=== PATIENT | female | born 1955 | race Caucasian/White ===

== ENCOUNTER → 2016-05-04 | Outpatient (CLI) | payer BC ==
[~2016-05-04] MED LIST: CALC600T21 PO; FISH1000 PO; FLAX1200 PO; GLUC1CAP9 PO; LEXA1TAB2 PO; NABU50TA PO; RANI300C PO; SUPECAP24 PO; cranberry OR; drisdol OR; tylenol pm OR
--- NOTE | 2016-05-09 07:29 | RADONC ---
RADIATION ONCOLOGY FOLLOWUP NOTE DATE: 05/04/2016 CHART NUMBER: [id number]. DIAGNOSIS: Right breast cancer. STAGE: IIB, [id number]. ECOG PERFORMANCE STATUS: 0 FOLLOWUP NOTE: Ms. Meyers is a very pleasant 60-year-old white female with the diagnosis of a stage IIB, [id number] moderately differentiated infiltrating ductal carcinoma of the right breast who is presenting to us today for routine followup visit 1 year and 1 month post completion of external beam radiation therapy. The patient presents today reporting that he is doing quite well with no complaints at this time related to her radiation therapy disease. She has no breast or bone pain. REVIEW OF SYSTEMS: The patient's review of systems is noncontributory. She denies nausea, vomiting, fevers, chills, night sweats, diplopia, headaches, anxiety or depression, anorexia, weight loss, visual disturbances, chest pain, urinary or bowel difficulties, bone pain, or neurological problems. PHYSICAL EXAMINATION: The patient is a well-developed, well-nourished white female in no acute distress. HEENT exam is normocephalic, atraumatic. Extraocular movements are intact. There is no palpable cervical, supraclavicular, infraclavicular, axillary, or inguinal lymphadenopathy present. Lungs are clear to auscultation and percussion. Heart has a regular rate and rhythm. Abdomen is benign with no hepatosplenomegaly, masses, or tenderness. Breast examination reveals no masses or discharge bilaterally. Skeletal examination reveals no tenderness to pressure or percussion of the bony skeleton. Extremities reveal no clubbing, cyanosis, or edema. Neurologic exam is grossly intact, as is the remainder of the physical examination. ASSESSMENT: The patient is clinically RAY at this time and will be seen by us again in 6 months further followup. She will also continue to be followed by her other physicians as well. cc: MD Christopher Garcia MD *KORINA Zambrano
== END ==
LOC: M ONCR 09:03
PROVIDERS: ATTEND Radiology Radiation Oncology
DX: C50.411 Malignant neoplasm of upper-outer quadrant of right female breast (principal)

== ENCOUNTER → 2016-07-04 | Outpatient (CLI) | payer BC | LOC: M LAB 16:07 | PROVIDERS: ATTEND Physician Assistant | DX: E55.9 Vitamin D deficiency, unspecified (principal); E66.9 Obesity, unspecified ==

== ENCOUNTER → 2016-09-28 | Outpatient (CLI) | payer BC ==
[~2016-09-28] MED LIST changes: -CALC600T21 PO; +CALC600T60 PO; +NABU500T PO; -NABU50TA PO
--- NOTE | 2016-09-28 17:11 | REP ---
RIGHT HAND, FOUR VIEWS: HISTORY: Pain. There is no acute fracture or dislocation. There is narrowing of the metacarpal phalangeal , intermediate and distal interphalangeal joint spaces. Osteophytes are present at the interphalangeal joint space of the 3rd digit and distal interphalangeal joint spaces of the 1st through 5th digits. IMPRESSION: Degenerative change as described above. Signed by Matti Rudolph MD 09/28/2016 05:14 P
--- NOTE | 2016-09-28 17:12 | REP ---
AP, LATERAL RIGHT WRIST, TWO VIEWS: HISTORY: Pain. There is no acute fracture or dislocation. The joint spaces are normal in appearance. Calcifications are present in the soft tissue dorsal to the carpal bones. This represents ligamentous or tendon calcification. IMPRESSION: Degenerative change as described above. Signed by Matti Rudolph MD 09/28/2016 05:13 P
== END ==
LOC: M RAD 15:38
PROVIDERS: ATTEND Internal Medicine Medical Oncology
DX: C50.919 Malignant neoplasm of unspecified site of unspecified female breast (principal); M19.031 Primary osteoarthritis, right wrist; M19.041 Primary osteoarthritis, right hand

== ENCOUNTER → 2016-11-23 | Outpatient (CLI) | payer BC ==
--- NOTE | 2016-11-23 11:40 | RADONC ---
RADIATION ONCOLOGY FOLLOWUP NOTE: DATE: 11/23/2016 CHART NUMBER: [id number]. DIAGNOSIS: Right breast cancer. STAGE: IIB, [id number]. ECOG PERFORMANCE STATUS: Zero. FOLLOWUP NOTE: Ms. Meyers is a very pleasant, 61-year-old white female with the diagnosis of a stage IIB, [id number] moderately differentiated infiltrating ductal carcinoma of the right breast who is presenting to us today for routine followup visit 1 year and 8 months post completion of external beam radiation therapy. The patient presents today reporting that she is doing quite well with no complaints at this time related to her radiation therapy disease. She has no breast or bone pain. REVIEW OF SYSTEMS: The patient's review of systems is noncontributory. Denies nausea, vomiting, fevers, chills, night sweats, diplopia, headaches, anxiety or depression, anorexia, weight loss, visual disturbances, chest pain, urinary or bowel difficulties, bone pain, or neurological problems. PHYSICAL EXAMINATION: The patient is a well-developed, well-nourished, white female, in no acute distress. HEENT exam is normocephalic, atraumatic. Extraocular movements are intact. There is no palpable cervical, supraclavicular, infraclavicular, axillary, or inguinal lymphadenopathy present. Lungs are clear to auscultation and percussion. Heart has a regular rate and rhythm. Abdomen is benign with no hepatosplenomegaly, masses, or tenderness. Breast examination reveals no masses or discharge bilaterally. Skeletal examination reveals no tenderness to pressure or percussion of the bony skeleton. Extremities reveal no clubbing, cyanosis, or edema. Neurologic exam is grossly intact, as is the remainder of the physical examination. ASSESSMENT: The patient is clinically RAY at this time and will be seen by us again in 6 months for further followup. She will also continue to be followed by her other physicians as well. cc: Sabine Burgess MD, FACP KORINA Zambrano MD
== END ==
LOC: M ONCR 09:18
PROVIDERS: ATTEND Radiology Radiation Oncology
DX: C50.411 Malignant neoplasm of upper-outer quadrant of right female breast (principal)

== ENCOUNTER → 2016-12-13 | Outpatient (CLI) | payer BC ==
--- NOTE | 2016-12-13 13:23 | REP ---
WHOLE BODY BONE SCAN: Following the intravenous administration of 21.7 mCi of technetium-99m MDP, patient's whole body is imaged in the anterior and posterior projections. Additional oblique images are performed of the thoracic and pelvic regions as well as lateral views of the calvarium. Comparison made with prior study of 12/04/2014. There is no compelling scintigraphic evidence of osseous metastases. Once again, there are arthritic changes seen in the hands and wrists, lumbar spine, right knee, and bilateral feet. There is also arthritic uptake in the left sternoclavicular joint. Renal and bladder activity are seen. IMPRESSION: Scattered arthritic uptake with no compelling scintigraphic evidence of osseous metastases. Signed by Sheldon Xiong MD 12/13/2016 04:50 P
== END ==
LOC: M RAD 09:57
PROVIDERS: ATTEND Internal Medicine Medical Oncology
DX: C50.919 Malignant neoplasm of unspecified site of unspecified female breast (principal); M25.551 Pain in right hip; M15.0 Primary generalized (osteo)arthritis
CPT/HCPCS: 78306; A9503

== ENCOUNTER → 2017-02-10 | Outpatient (CLI) | payer BC ==
[2017-02-10 08:44] LABS: ALBUMIN 3.7 GM/DL (3.2-5.2); ALBUMIN/GLOBULIN RATIO 1.16 (1.00-1.93); ALKALINE PHOSPHATASE 74 U/L (45-117); ALT/SGPT 30 U/L (12-78); ANION GAP 11 MEQ/L (8-16); AST/SGOT 22 U/L (7-37); BILIRUBIN,TOTAL 0.7 MG/DL (0.2-1.0); BLOOD UREA NITROGEN 19 MG/DL (7-18); CALCIUM LEVEL 9.4 MG/DL (8.8-10.2); CARBON DIOXIDE LEVEL 25 MEQ/L (21-32); CHLORIDE LEVEL 107 MEQ/L (98-107); CHOLESTEROL LEVEL 164 MG/DL (<200); CREATININE FOR GFR 0.68 MG/DL (0.55-1.02); GLOMERULAR FILTRATION RATE > 60.0 (>45); GLUCOSE, FASTING 91 MG/DL (80-110); POTASSIUM SERUM 4.3 MEQ/L (3.5-5.1); SODIUM LEVEL 143 MEQ/L (136-145); TOTAL PROTEIN 6.9 GM/DL (6.4-8.2); TRIGLYCERIDES LEVEL 132 MG/DL (<150)
== END ==
LOC: M LAB 07:12
PROVIDERS: ATTEND Physician Assistant
DX: E78.2 Mixed hyperlipidemia (principal); K21.9 Gastro-esophageal reflux disease without esophagitis; E55.9 Vitamin D deficiency, unspecified

== ENCOUNTER → 2017-06-20 | Outpatient (CLI) | payer BC | LOC: M WHC 07:59 | DX: Z79.811 Long term (current) use of aromatase inhibitors (principal); C50.919 Malignant neoplasm of unspecified site of unspecified female breast | CPT/HCPCS: 77080 ==

== ENCOUNTER → 2018-01-04 | Outpatient (CLI) | payer BC ==
[~2018-01-04] MED LIST changes: -CALC600T60 PO; -FISH1000 PO; -FLAX1200 PO; -GLUC1CAP9 PO; -LEXA1TAB2 PO; -NABU500T PO; +PROHANCE 279.3MG/ML 15ML VIAL (A9576) As Ordered; +PROHANCE 279.3MG/ML 5ML VIAL (A9576) As Ordered; -RANI300C PO; -SUPECAP24 PO; -cranberry OR; -drisdol OR; -tylenol pm OR
== END ==
LOC: M RAD 09:03
DX: C50.919 Malignant neoplasm of unspecified site of unspecified female breast (principal); R51 Headache; I67.82 Cerebral ischemia
CPT/HCPCS: A9576

== ENCOUNTER → 2018-01-05 | Outpatient (CLI) | payer BC | LOC: M RAD 15:41 | DX: C50.919 Malignant neoplasm of unspecified site of unspecified female breast (principal); Z98.890 Other specified postprocedural states | CPT/HCPCS: A9576 ==

== ENCOUNTER → 2018-09-26 | Outpatient (CLI) | payer BC ==
[~2018-09-26] MED LIST changes: +ALEN70TA74 PO; +B CO PO; +CALC600T60 PO; +CIDA500T2 PO; +EXEM25TA PO; +FISH1000 PO; +FLAX1200 PO; +FLAX1CAP5 PO; +GLUC1CAP9 PO; +LEXA1TAB2 PO; +MELO15TA28 PO; +NABU-126 PO; -PROHANCE 279.3MG/ML 15ML VIAL (A9576) As Ordered; -PROHANCE 279.3MG/ML 5ML VIAL (A9576) As Ordered; +RANI300C PO; +SUPECAP24 PO; +cranberry OR; +drisdol OR; +tylenol pm OR
[2018-09-26 14:43] LABS: ALBUMIN 3.7 GM/DL (3.2-5.2); ALT/SGPT 30 U/L (12-78); BILIRUBIN,TOTAL 0.4 MG/DL (0.2-1.0); BLOOD UREA NITROGEN 12 MG/DL (7-18); CALCIUM LEVEL 8.8 MG/DL (8.8-10.2); CARBON DIOXIDE LEVEL 26 MEQ/L (21-32); CHLORIDE LEVEL 106 MEQ/L (98-107); CREATININE FOR GFR 0.74 MG/DL (0.55-1.30); GLOMERULAR FILTRATION RATE > 60.0 (>45); GLUCOSE, FASTING 83 MG/DL (70-100); POTASSIUM SERUM 4.4 MEQ/L (3.5-5.1); SODIUM LEVEL 140 MEQ/L (136-145); TOTAL PROTEIN 7.3 GM/DL (6.4-8.2)
[2018-09-26 14:50] LABS: TOTAL 25(OH) VITAMIN D 62.5 NG/ML (30.0-100.0)
== END ==
LOC: M LAB 13:55
PROVIDERS: ATTEND Physician Assistant
DX: M15.9 Polyosteoarthritis, unspecified (principal); K21.9 Gastro-esophageal reflux disease without esophagitis; C50.919 Malignant neoplasm of unspecified site of unspecified female breast; E78.2 Mixed hyperlipidemia; E55.9 Vitamin D deficiency, unspecified

== ENCOUNTER → 2019-04-18 | Outpatient (CLI) | payer BC ==
[~2019-04-18] MED LIST changes: +PROT1TAB2 PO; +PROTPAK PO
--- NOTE | 2019-04-19 02:56 | REP ---
Clinical: Right-sided chest pain. Technique: PA and lateral. Comparison: None. Findings: Mediastinum and cardiac silhouette normal. Lung reed demonstrate chronic-appearing interstitial changes. No obvious focal consolidation, effusion, or pneumothorax. Skeletal structures demonstrate degenerative changes and chronic scoliosis. Small surgical clips noted along the lateral aspect of the right hemithorax. Impression: Chronic-appearing changes. If the patient remains symptomatic consider CT for further investigation. Electronically Signed by Uriel Walls MD 04/19/2019 02:48 A
--- NOTE | 2019-04-19 03:05 | REP ---
Clinical: Trauma. Technique: Four views of the right hemithorax. Findings: Multiple views of the right hemithorax demonstrates no obvious acute rib fracture or pathology. Evidence of prior axillary node dissection. Impression: Normal right rib series Electronically Signed by Uriel Walls MD 04/19/2019 02:57 A
== END ==
LOC: M ADAMS 10:45
PROVIDERS: ATTEND Physician Assistant
DX: R07.81 Pleurodynia (principal)

== ENCOUNTER → 2019-04-24 | Outpatient (CLI) | payer BC ==
--- NOTE | 2019-04-25 04:27 | REP ---
Clinical: Right upper quadrant pain. Technique: Real time guajardo scale ultrasound examination using curved array transducer. Comparison: CT dated 03/06/2015 Findings: The liver is relatively normal in contour, size, echogenicity without focal hepatic lesion identified and the previously noted hepatic cyst is not visualized on current examination. The pancreas is unremarkable. The gallbladder is normal and without gallstones, wall thickening, or pericholecystic fluid. No biliary ductal dilatation is appreciated and the common bile duct measures 4.3 mm diameter. The right kidney is limited in evaluation due to technical factors and appears to measure approximately 9.4 x 4.8 x 4.1 cm with 2.9 cm and 1.8 cm mid pole cysts. No hydronephrosis. Small amount of perihepatic fluid is identified and possible small right pleural effusion cannot be excluded. Impression: 1. Small amount of perihepatic fluid and possible right pleural effusion. 2. Liver is relatively normal in appearance and the previously identified hepatic cyst is not visualized on current exam. 3. Somewhat limited evaluation of the right kidney due to technical factors suggesting age-related atrophy and two mid pole cysts. These findings appear relatively similar to CT dated 2014. Electronically Signed by Uriel Walls MD 04/25/2019 04:18 A
== END ==
LOC: M RAD 07:31
PROVIDERS: ATTEND Physician Assistant
DX: R10.11 Right upper quadrant pain (principal)

== ENCOUNTER → 2019-05-10 | Outpatient (REF) | payer BC ==
[2019-05-10 09:35] LABS: BASO % 0.2 % (0.0-1.0); EOS # 0.1 10^3/uL (0.0-0.5); EOS % 0.7 % (0.0-3.0); HEMATOCRIT 41.8 % (36.0-47.0); HEMOGLOBIN 13.8 g/dl (12.0-15.5); LYMPH # 1.1 10^3/uL (1.5-5.0); MEAN CORPUSCULAR HEMOGLOBIN 31.2 pg (27.0-33.0); MEAN CORPUSCULAR VOLUME 94.6 fl (80.0-96.0); MONO # 0.7 10^3/uL (0.0-0.8); MONO % 7.5 % (0.0-5.0); NEUTROPHILS # 7.2 10^3/uL (1.5-8.5); NEUTROPHILS % 79.3 % (36.0-66.0); PLATELET COUNT, AUTOMATED 426 10^3/uL (150-450); RED BLOOD COUNT 4.42 10^6/uL (4.00-5.40); WHITE BLOOD COUNT 9.1 10^3/uL (4.0-10.0)
[2019-05-10 09:59] LABS: ALBUMIN 2.7 GM/DL (3.2-5.2); ALT/SGPT 21 U/L (12-78); BILIRUBIN,TOTAL 0.4 MG/DL (0.2-1.0); BLOOD UREA NITROGEN 11 MG/DL (7-18); CALCIUM LEVEL 8.8 MG/DL (8.8-10.2); CARBON DIOXIDE LEVEL 28 MEQ/L (21-32); CHLORIDE LEVEL 102 MEQ/L (98-107); CREATININE FOR GFR 0.72 MG/DL (0.55-1.30); GLOMERULAR FILTRATION RATE > 60.0 (>45); GLUCOSE, FASTING 102 MG/DL (70-100); SODIUM LEVEL 137 MEQ/L (136-145); TOTAL PROTEIN 6.8 GM/DL (6.4-8.2)
[2019-05-10 10:49] LABS: CA15-3 ANTIGEN 3.8 U/ML (<32.4)
== END ==
LOC: M LAB REF 09:10
PROVIDERS: ATTEND Obstetrics & Gynecology
DX: R19.00 Intra-abdominal and pelvic swelling, mass and lump, unspecified site (principal); Z80.3 Family history of malignant neoplasm of breast; N81.10 Cystocele, unspecified; N81.6 Rectocele; C50.911 Malignant neoplasm of unspecified site of right female breast; R10.2 Pelvic and perineal pain

== ENCOUNTER 2019-05-16 09:45 | Emergency (ER) | payer BC ==
[~2019-05-16] VITALS: Ht 165.1 cm; Wt 95.9 kg
--- NOTE | 2019-05-16 10:56 | REP ---
Clinical: Abdominal pain. Technique: PA and lateral. Comparison: 04/18/2019. Findings: There are small pleural effusions with trace basilar atelectasis suggested. Mediastinum and cardiac silhouette are normal. Right axillary node dissection noted. Impression: Possible small pleural effusions and trace atelectasis. Electronically Signed by Uriel Walls MD 05/16/2019 10:47 A
[2019-05-16 11:12] LABS: BASO % 0.2 % (0.0-1.0); EOS % 0.1 % (0.0-3.0); HEMATOCRIT 41.6 % (36.0-47.0); LYMPH # 1.2 10^3/uL (1.5-5.0); LYMPH % 8.8 % (24.0-44.0); MEAN CORPUSCULAR HGB CONC 33.7 g/dl (32.0-36.5); MONO % 7.8 % (0.0-5.0); NEUTROPHILS % 82.6 % (36.0-66.0); PLATELET COUNT, AUTOMATED 486 10^3/uL (150-450); RED BLOOD COUNT 4.52 10^6/uL (4.00-5.40); WHITE BLOOD COUNT 13.3 10^3/uL (4.0-10.0)
[2019-05-16] MEDS ORDERED: LEXA1TAB2 PO (11:34)
[2019-05-16] MEDS ORDERED: MYRB25TA PO (11:38)
[2019-05-16] MEDS ORDERED: ISOVUE-370 76% 100ML VIAL (Q9967) As Ordered ONE (12:26)
[2019-05-16] MEDS ORDERED: LORazepam 2 MG/ML VIAL (J2060) IV STA (12:27)
[2019-05-16 12:47] LABS: INR 1.2
[2019-05-16 12:48] LABS: PARTIAL THROMBOPLASTIN TIME 29.9 SECONDS (25.0-38.4)
[2019-05-16 13:17] LABS: ALBUMIN 2.3 GM/DL (3.2-5.2); ALT/SGPT 18 U/L (12-78); AMYLASE 21 U/L (25-115); BILIRUBIN,DIRECT 0.1 MG/DL (0.0-0.2); BILIRUBIN,TOTAL 0.3 MG/DL (0.2-1.0); BLOOD UREA NITROGEN 15 MG/DL (7-18); CALCIUM LEVEL 8.8 MG/DL (8.8-10.2); CARBON DIOXIDE LEVEL 26 MEQ/L (21-32); CHLORIDE LEVEL 99 MEQ/L (98-107); CK-MB VALUE MASS 1.5 NG/ML (<3.6); CPK CREATINE PHOSPHOKINASE 104 U/L (26-192); CREATININE FOR GFR 0.88 MG/DL (0.55-1.30); GLOMERULAR FILTRATION RATE > 60.0 (>45); GLUCOSE, FASTING 88 MG/DL (70-100); LIPASE 197 U/L (73-393); MB/CK RELATIVE INDEX 1.44 (< OR =4); NT-PRO BNP 523 PG/ML (<125); POTASSIUM SERUM 3.9 MEQ/L (3.5-5.1); SODIUM LEVEL 133 MEQ/L (136-145); TOTAL PROTEIN 6.5 GM/DL (6.4-8.2); TROPONIN I < 0.02 NG/ML (< 0.10)
--- NOTE | 2019-05-16 13:38 | REP ---
CT PULMONARY ANGIOGRAM: With IV contrast. HISTORY: Shortness of breath, diffuse abdominal pain. Uterine mass. Elevated tumor markers. Prior history of breast carcinoma. COMPARISON STUDIES: Comparison sonography April 24, 2018. Comparison CT study of the abdomen March 06, 2015. CT CONTRAST DOSE: 100 mL of intravenous Isovue 378. CT TECHNIQUE: Helical scanning is acquired and overlapping 1.5 mm and contiguous 3 mm axial images are reformatted. In addition, maximum intensity projection and multiplanar re-formation images are generated in sagittal and coronal imaging projections. CT PULMONARY ANGIOGRAPHIC FINDINGS: There is good opacification in the pulmonary arterial tree. There is no CT evidence of pulmonary embolism. Thoracic aorta enhances homogeneously. There is no evidence of aneurysm or dissection. There are however bilateral pleural effusions and there is bilateral internal mammary lymphadenopathy with right superior mediastinal lymphadenopathy. There is heterogeneous nodular pleural thickening on the superior surface of the right diaphragm and to a lesser extent left diaphragm in an infiltrative pattern. There is adenopathy in the epicardial fat. There is ascites in the upper abdomen. The right pleural effusion is a little larger than left. There are compressive atelectatic changes in the lower lobes of the lungs bilaterally. No pulmonary mass lesion is seen. There is some discoid atelectasis in the right and left upper lobe. Bone window settings show no bony destructive lesion. There is no evidence of axillary or supraclavicular adenopathy. There are surgical clips in the right axilla. IMPRESSION: Bilateral pleural effusions, right larger than left with nodular pleural thickening changes at the bases bilaterally suggesting malignant pleural disease. There is internal mammary and epicardial and mediastinal adenopathy. There is mild pericardial thickening. Upper abdominal ascites. No CT evidence of pulmonary embolus. Electronically Signed by Jesse Villa MD 05/16/2019 05:04 P
--- NOTE | 2019-05-16 13:54 | REP ---
CT of the abdomen and pelvis with IV contrast, without bowel contrast: Comparison is 2014. Additionally, the the patient had a chest CT this same date. There are bilateral pleural effusions in the visualized lower lung reed. There are mesenteric and omental implants in the midline of the upper abdomen anteriorly resulting in omental thickening. There is abdominal ascites throughout the abdomen and pelvis. There is a 1.4 cm hepatic cyst in the right lobe, unchanged from the prior study. The hepatic parenchyma is otherwise homogeneous. The gallbladder, pancreas and spleen are normal size unremarkable. The adrenals are unremarkable. The left kidney is unremarkable. There are left renal cortical cysts, unchanged. However, there is hydronephrosis as an interval change. There is an aortocaval mass measuring up to 5.9 cm, likely resulting in right ureteral compression and hydronephrosis. Pelvis: There is a large mass in the midline of the pelvis, likely a uterine mass. The bladder is unremarkable. There are no lytic, blastic or destructive skeletal changes. Impression: There is a large pelvic mass, likely a uterine mass. There is a large volume of ascites in the abdomen and pelvis. There are mesenteric and omental implants in the upper abdomen anteriorly . There is a an aortocaval retroperitoneal mass, likely adenopathy. There is right renal hydronephrosis, likely from ureteral compression from the aortocaval mass. There is an hepatic cyst. The hepatic parenchyma is otherwise unremarkable. There are right renal cysts. There are bilateral pleural effusions. There are no lytic, blastic or destructive skeletal changes. Electronically Signed by Sheldon Macario MD 05/16/2019 01:45 P
[2019-05-16] MEDS ORDERED: ONDANSETRON 4MG/2ML VIAL (J2405) IV ONE (18:45)
--- NOTE | 2019-05-16 18:45 | ECGEPIP ---
[facility] - ED Test Date: 2019-05-16 Pat Name: LU YOUSSEF Department: Room: - Gender: Female Etcher Enameling: soraida : 1955 Requested By: KECIA Rudolph PA-C Order Number: [id number] Reading MD: Regino Khalil Measurements Intervals Clarkia Rate: 94 P: 60 MD: 140 QRS: 10 QRSD: 95 T: 46 QT: 367 QTc: 460 Interpretive Statements SINUS RHYTHM LOW QRS VOLTAGE IN PRECORDIAL LEADS INCOMPLETE RIGHT BUNDLE BRANCH BLOCK NONSPECIFIC T-WAVE ABNORMALITY NO PRIORS FOR COMPARISON Electronically Signed on 05-16-2019 18:44:54 EST by Regino Khalil
[2019-05-16] MEDS ORDERED: LORazepam 2 MG/ML VIAL (J2060) IV ONE (20:45)
[2019-05-16 21:15] VITALS: BP 144/83
[2019-05-16] MEDS ORDERED: LORazepam 2 MG/ML VIAL (J2060) As Ordered ONE (21:16)
== END 2019-05-16 21:28 | disposition short-term general hospital (02) ==
LOC: M ED 09:45
DX: I45.19 Other right bundle-branch block (principal); N13.30 Unspecified hydronephrosis; D39.0 Neoplasm of uncertain behavior of uterus; R18.8 Other ascites; J90 Pleural effusion, not elsewhere classified; R10.84 Generalized abdominal pain; K76.89 Other specified diseases of liver; N28.1 Cyst of kidney, acquired; K68.9 Other disorders of retroperitoneum; R93.5 Abnormal findings on diagnostic imaging of other abdominal regions, including retroperitoneum; R06.02 Shortness of breath; Z87.442 Personal history of urinary calculi; Z87.448 Personal history of other diseases of urinary system; Z85.79 Personal history of other malignant neoplasms of lymphoid, hematopoietic and related tissues; E55.9 Vitamin D deficiency, unspecified; E66.9 Obesity, unspecified; Z79.899 Other long term (current) drug therapy
CPT/HCPCS: 36415; 71046; 71275; 74177; 80047; 80048; 80076; 82150; 82550; 82553; 83605; 83690; 83880; 84484; 85025; 85610; 85730; 93005; 96374; 96375; 99284; J2060; J2405; Q9967

== ENCOUNTER → 2019-05-31 | Outpatient (REF) | payer BC ==
[~2019-05-31] MED LIST changes: +MYRB25TA PO
[2019-05-31 14:09] LABS: HEMATOCRIT 34.5 % (36.0-47.0); HEMOGLOBIN 11.2 g/dl (12.0-15.5); MEAN CORPUSCULAR HEMOGLOBIN 30.9 pg (27.0-33.0); MEAN CORPUSCULAR HGB CONC 32.5 g/dl (32.0-36.5); MEAN CORPUSCULAR VOLUME 95.3 fl (80.0-96.0); PLATELET COUNT, AUTOMATED 217 10^3/uL (150-450); RED BLOOD COUNT 3.62 10^6/uL (4.00-5.40); WHITE BLOOD COUNT 7.8 10^3/uL (4.0-10.0)
[2019-05-31 14:27] LABS: ALBUMIN 1.8 GM/DL (3.2-5.2); ALT/SGPT 38 U/L (12-78); BILIRUBIN,TOTAL 0.2 MG/DL (0.2-1.0); BLOOD UREA NITROGEN 17 MG/DL (7-18); CALCIUM LEVEL 7.3 MG/DL (8.8-10.2); CARBON DIOXIDE LEVEL 31 MEQ/L (21-32); CHLORIDE LEVEL 102 MEQ/L (98-107); CREATININE FOR GFR 0.48 MG/DL (0.55-1.30); GLOMERULAR FILTRATION RATE > 60.0 (>45); GLUCOSE, FASTING 101 MG/DL (70-100); POTASSIUM SERUM 3.5 MEQ/L (3.5-5.1); SODIUM LEVEL 138 MEQ/L (136-145); TOTAL PROTEIN 4.8 GM/DL (6.4-8.2)
== END ==
LOC: M SHH 12:58
PROVIDERS: ATTEND Internal Medicine Medical Oncology
DX: C50.419 Malignant neoplasm of upper-outer quadrant of unspecified female breast (principal)

== ENCOUNTER → 2019-08-13 | Outpatient (REF) | payer BC ==
[2019-08-13 18:04] LABS: APPEARANCE, URINE CLOUDY (CLEAR); BACTERIA, URINE AUTO 1+ (NEGATIVE); BILIRUBIN, URINE AUTO NEGATIVE (NEGATIVE); BLOOD, URINE BLOOD NEGATIVE (NEGATIVE); COLOR, URINE YELLOW (YELLOW); GLUCOSE, URINE (UA) AUTO NEGATIVE (NEGATIVE); KETONE, URINE AUTO NEGATIVE (NEGATIVE); LEUKOCYTE ESTERASE, URINE AUTO 3+ (NEGATIVE); MUCUS, URINE SMALL (NEGATIVE); NITRITE, URINE AUTO NEGATIVE (NEGATIVE); PROTEIN, URINE AUTO 2+ mg/dL (NEGATIVE); RBC, URINE AUTO 5 /HPF (0-3); SPECIFIC GRAVITY URINE AUTO 1.005 (1.002-1.035); SQUAMOUS EPITHELIAL CELL UR AU 0 /HPF (0-6); UROBILINOGEN, URINE AUTO 0.2 mg/dL (0.0-2.0); WBC, URINE AUTO 117 /HPF (0-3)
== END ==
LOC: M SFHCLACO 16:35
PROVIDERS: ATTEND Physician Assistant
DX: R30.0 Dysuria (principal)

== ENCOUNTER → 2019-09-20 | Outpatient (REF) | payer BC ==
[2019-09-20 16:05] LABS: APPEARANCE, URINE CLOUDY (CLEAR); BACTERIA, URINE AUTO 1+ (NEGATIVE); BILIRUBIN, URINE AUTO NEGATIVE (NEGATIVE); BLOOD, URINE BLOOD 1+ (NEGATIVE); COLOR, URINE YELLOW (YELLOW); GLUCOSE, URINE (UA) AUTO NEGATIVE (NEGATIVE); KETONE, URINE AUTO NEGATIVE (NEGATIVE); LEUKOCYTE ESTERASE, URINE AUTO 3+ (NEGATIVE); MUCUS, URINE SMALL (NEGATIVE); NITRITE, URINE AUTO NEGATIVE (NEGATIVE); PROTEIN, URINE AUTO 2+ mg/dL (NEGATIVE); RBC, URINE AUTO 7 /HPF (0-3); SPECIFIC GRAVITY URINE AUTO 1.012 (1.002-1.035); SQUAMOUS EPITHELIAL CELL UR AU 1 /HPF (0-6); UROBILINOGEN, URINE AUTO 0.2 mg/dL (0.0-2.0); WBC, URINE AUTO TNTC /HPF (0-3)
== END ==
LOC: M SFHCLACO 13:42
PROVIDERS: ATTEND Physician Assistant
DX: R30.0 Dysuria (principal); N30.00 Acute cystitis without hematuria

== ENCOUNTER → 2019-11-12 | Outpatient (REF) | payer BC ==
[~2019-11-12] MED LIST changes: -NABU-126 PO; +NABU-51 PO
[2019-12-30 22:23] LABS: APPEARANCE, URINE CLEAR (CLEAR); BACTERIA, URINE AUTO 2+ (NEGATIVE); BILIRUBIN, URINE AUTO NEGATIVE (NEGATIVE); BLOOD, URINE BLOOD 1+ (NEGATIVE); COLOR, URINE STRAW (YELLOW); GLUCOSE, URINE (UA) AUTO NEGATIVE (NEGATIVE); KETONE, URINE AUTO NEGATIVE (NEGATIVE); LEUKOCYTE ESTERASE, URINE AUTO 3+ (NEGATIVE); NITRITE, URINE AUTO NEGATIVE (NEGATIVE); PROTEIN, URINE AUTO NEGATIVE (NEGATIVE); RBC, URINE AUTO 4 /HPF (0-3); SPECIFIC GRAVITY URINE AUTO 1.005 (1.002-1.035); SQUAMOUS EPITHELIAL CELL UR AU 0 /HPF (0-6); UROBILINOGEN, URINE AUTO 0.2 mg/dL (0.0-2.0); WBC, URINE AUTO 31 /HPF (0-3)
== END ==
LOC: M SFHCADAM 09:52
PROVIDERS: ATTEND Physician Assistant Medical
DX: R30.0 Dysuria (principal)

== ENCOUNTER → 2019-12-01 | Outpatient (REF) | payer BC | LOC: M WUC 17:00 | PROVIDERS: ATTEND Physician Assistant | DX: N39.0 Urinary tract infection, site not specified (principal) ==

== ENCOUNTER → 2020-02-26 | Outpatient (CLI) | payer BC ==
--- NOTE | 2020-02-26 15:37 | REP ---
INDICATION: SWELLING IN BOTH LEGS COMPARISON: None. TECHNIQUE: Xiong scale and color Doppler evaluation of the bilateral lower extremities using linear high frequency transducer. FINDINGS: Ultrasound examination of the right and left lower extremity deep venous structures from the common femoral vein to the popliteal vein demonstrates normal compressibility flow and wave patterns in response to respiration and augmentation. There is no evidence for deep venous thrombosis. IMPRESSION: No evidence for deep venous thrombosis. <Electronically signed by Uriel Walls > 02/26/20 1532
== END ==
LOC: M RAD 14:48
PROVIDERS: ATTEND Family Medicine
DX: L53.9 Erythematous condition, unspecified (principal)

== ENCOUNTER → 2020-10-08 | Outpatient (REF) | payer MEDICARE, BC ==
[~2020-10-08] MED LIST changes: -ALEN70TA74 PO; +ALEN70TA82 PO; -NABU-51 PO; +NABU-71 PO
[2020-10-08 12:39] LABS: APPEARANCE, URINE CLOUDY (CLEAR); BACTERIA, URINE AUTO 1+ (NEGATIVE); BILIRUBIN, URINE AUTO NEGATIVE (NEGATIVE); BLOOD, URINE BLOOD 2+ (NEGATIVE); COLOR, URINE YELLOW (YELLOW); GLUCOSE, URINE (UA) AUTO NEGATIVE (NEGATIVE); KETONE, URINE AUTO NEGATIVE (NEGATIVE); LEUKOCYTE ESTERASE, URINE AUTO 3+ (NEGATIVE); MUCUS, URINE SMALL (NEGATIVE); NITRITE, URINE AUTO NEGATIVE (NEGATIVE); PROTEIN, URINE AUTO 1+ mg/dL (NEGATIVE); RBC, URINE AUTO 13 /HPF (0-3); SPECIFIC GRAVITY URINE AUTO 1.015 (1.002-1.035); SQUAMOUS EPITHELIAL CELL UR AU 0 /HPF (0-6); TRANSITIONAL EPITHELIAL AUTO 3 /HPF; UROBILINOGEN, URINE AUTO 0.2 mg/dL (0.0-2.0); WBC, URINE AUTO TNTC /HPF (0-3)
== END ==
LOC: M LAB REF 12:23
PROVIDERS: ATTEND Physician Assistant
DX: R30.0 Dysuria (principal)

== ENCOUNTER 2021-03-07 02:18 | Inpatient (IN) | payer MEDICARE, BC ==
[~2021-03-07] VITALS: Ht 167.6 cm; Wt 94.0 kg
[2021-03-07] MEDS ORDERED: NS 1,000 ML IV ONE ×5 (04:30→12:25)
[2021-03-07 04:52] LABS: HEMATOCRIT 33.3 % (36.0-47.0); MEAN CORPUSCULAR HEMOGLOBIN 34.7 pg (27.0-33.0); PLATELET COUNT, AUTOMATED 170 10^3/uL (150-450); RED BLOOD COUNT 3.17 10^6/uL (4.00-5.40); WHITE BLOOD COUNT 4.6 10^3/uL (4.0-10.0)
[2021-03-07 05:27] LABS: ANISOCYTOSIS 1+; LYMPHOCYTES 18 % (16-44); METAMYELOCYTES 7 % (0-0); MONOCYTES 3 % (0-5); NEUTROPHILS 69 % (28-66); PLATELET ESTIMATE NORMAL (NORMAL)
[2021-03-07 05:28] LABS: TEAR DROP CELLS 1+
[2021-03-07 07:34] LABS: BILIRUBIN,DIRECT 0.3 MG/DL (0.0-0.2); BILIRUBIN,TOTAL 0.7 MG/DL (0.2-1.0); TOTAL PROTEIN 6.4 GM/DL (6.4-8.2)
[2021-03-07 07:51] LABS: RSV AMPLIFICATION NEGATIVE (NEGATIVE)
[2021-03-07] MEDS ORDERED: ISOVUE-370 76% 100ML VIAL As Ordered ONE (07:52)
[2021-03-07] MEDS ORDERED: cefTRIAXone SOD 2 GM in D5W MINI-BAG PLUS 50 ML IV ONE (07:55)
[2021-03-07] MEDS ORDERED: NOREPINEPHRINE BITARTRATE 8 MG in D5W 492 ML IV SCH (09:50)
[2021-03-07] MEDS ORDERED: VANCOMYCIN ORAL SOL 250MG/5ML ORAL SYRINGE PO SCH (09:55)
[2021-03-07] MEDS ORDERED: metroNIDAZOLE 500 MG in IV 1 EA IV SCH (09:55)
[2021-03-07] MEDS ORDERED: RA B1TAB7 PO (10:07)
[2021-03-07] MEDS ORDERED: CALC1TAB63 PO (10:07)
[2021-03-07] MEDS ORDERED: PROC10TA4 PO (10:07)
[2021-03-07] MEDS ORDERED: LEXA1TAB2 PO (10:07)
[2021-03-07] MEDS ORDERED: MELO15TA28 PO (10:07)
[2021-03-07] MEDS ORDERED: ONDA8TAB10 PO (10:07)
[2021-03-07] MEDS ORDERED: ATIV1TAB10 PO (10:07)
[2021-03-07] MEDS ORDERED: MYRB25TA PO (10:07)
[2021-03-07] MEDS ORDERED: HOME MED LIST COMPLETE! XX SCH (10:10)
[2021-03-07 10:22] LABS: C REACTIVE PROTEIN QUANTITATIV 12.5 MG/DL (0.00-0.30); CALCIUM LEVEL 8.3 MG/DL (8.8-10.2); CREATININE FOR GFR 1.11 MG/DL (0.55-1.30); GLOMERULAR FILTRATION RATE 52.5 (>45); POTASSIUM SERUM 3.7 MEQ/L (3.5-5.1)
[2021-03-07 10:47] LABS: CK-MB VALUE MASS < 1.0 NG/ML (<3.6); CPK CREATINE PHOSPHOKINASE 101 U/L (26-192); MB/CK RELATIVE INDEX 0.99 (< OR =4)
[2021-03-07] MEDS ORDERED: LORazepam 0.5 MG TAB PO PRN (11:55)
[2021-03-07] MEDS: MIDODRINE 5 MG TAB PO SCH ×2 (12:00→15:58)
[2021-03-07] MEDS ORDERED: ONDANSETRON 4MG/2ML VIAL IV PRN (12:25)
[2021-03-07] MEDS ORDERED: CALCIUM GLUCONATE 1,000 MG in D5W MINI-BAG PLUS 100 ML IV ONE (13:00)
[2021-03-07] MEDS: dexameTHASONE 20MG/5ML VIAL (J1100 PER 1MG) IV SCH (15:57)
[2021-03-07] MEDS: ENOXAPARIN 40MG/0.4ML SYRINGE (J1650 PER 10MG) SC SCH (15:58)
[2021-03-07] MEDS: KCL 20MEQ in NS 1000ML 1,000 ML IV SCH (16:00)
[2021-03-07] MEDS: MAG SULF 1GM/100ML (MAG RUN) 1 GM in IV 1 EA IV SCH ×2 (17:00→19:32)
[2021-03-07 20:32] LABS: BLOOD UREA NITROGEN 15 MG/DL (7-18); CALCIUM LEVEL 7.7 MG/DL (8.8-10.2); CARBON DIOXIDE LEVEL 24 MEQ/L (21-32); CHLORIDE LEVEL 105 MEQ/L (98-107); CREATININE FOR GFR 0.57 MG/DL (0.55-1.30); GLOMERULAR FILTRATION RATE > 60.0 (>45); GLUCOSE, FASTING 85 MG/DL (70-100); MAGNESIUM LEVEL 1.5 MG/DL (1.8-2.4); POTASSIUM SERUM 3.2 MEQ/L (3.5-5.1); SODIUM LEVEL 137 MEQ/L (136-145)
[2021-03-07 20:55] VITALS: BP 103/51
[2021-03-07] MEDS: NS 1,000 ML IV SCH (20:55)
[2021-03-08] VITALS (19 sets, daily range): BP systolic 86–112; BP diastolic 52–73
[2021-03-08] MEDS: dexameTHASONE 20MG/5ML VIAL (J1100 PER 1MG) IV SCH ×3 (00:51→09:54)
[2021-03-08] MEDS: ESCITALOPRAM OXALATE 10 MG TAB (LEXAPRO) PO SCH ×2 (00:52→20:18)
[2021-03-08] MEDS: MELOXICAM (MOBIC) 7.5 MG TAB PO SCH ×2 (00:52→20:18)
[2021-03-08 04:31] LABS: HEMATOCRIT 27.7 % (36.0-47.0); HEMOGLOBIN 9.1 g/dl (12.0-15.5); MEAN CORPUSCULAR HEMOGLOBIN 34.2 pg (27.0-33.0); MEAN CORPUSCULAR HGB CONC 32.9 g/dl (32.0-36.5); MEAN CORPUSCULAR VOLUME 104.1 fl (80.0-96.0); PLATELET COUNT, AUTOMATED 103 10^3/uL (150-450); RED BLOOD COUNT 2.66 10^6/uL (4.00-5.40); WHITE BLOOD COUNT 4.1 10^3/uL (4.0-10.0)
[2021-03-08] MEDS ORDERED: NS 500 ML IV ONE (04:50)
[2021-03-08] MEDS ORDERED: FUROSEMIDE 20MG/2ML VIAL (J1940) IV ONE (04:50)
[2021-03-08 04:52] LABS: BLOOD UREA NITROGEN 14 MG/DL (7-18); CALCIUM LEVEL 7.9 MG/DL (8.8-10.2); CARBON DIOXIDE LEVEL 23 MEQ/L (21-32); CHLORIDE LEVEL 107 MEQ/L (98-107); CREATININE FOR GFR 0.49 MG/DL (0.55-1.30); GLOMERULAR FILTRATION RATE > 60.0 (>45); GLUCOSE, FASTING 112 MG/DL (70-100); POTASSIUM SERUM 3.4 MEQ/L (3.5-5.1); SODIUM LEVEL 138 MEQ/L (136-145)
[2021-03-08] MEDS: KCL 20MEQ in NS 1000ML 1,000 ML IV SCH ×3 (05:00→22:00)
[2021-03-08 05:05] LABS: LYMPHOCYTES 7 % (16-44); MONOCYTES 3 % (0-5); NEUTROPHILS 82 % (28-66)
[2021-03-08] MEDS ORDERED: MAG SULF 1GM/100ML (MAG RUN) 1 GM in IV 1 EA IV ONE (05:05)
[2021-03-08 05:06] LABS: ANISOCYTOSIS 1+; PLATELET ESTIMATE DECREASED (NORMAL); POIKILOCYTOSIS 1+
[2021-03-08] MEDS ORDERED: NS 1,000 ML IV ONE (05:55)
[2021-03-08] MEDS: MIDODRINE 5 MG TAB PO SCH ×3 (06:10→15:32)
[2021-03-08] MEDS ORDERED: VANCOMYCIN HCL 1,000 MG, VIAL MATE ADAPTER 1 EACH in NS 250 ML IV SCH (07:25)
[2021-03-08 07:58] LABS: CK-MB VALUE MASS 1.7 NG/ML (<3.6); MB/CK RELATIVE INDEX 1.62 (< OR =4)
[2021-03-08 08:13] LABS: C REACTIVE PROTEIN QUANTITATIV 23.8 MG/DL (0.00-0.30)
[2021-03-08 08:39] LABS: ERYTHROCYTE SEDIMENTATION RATE 106 mm/hr (0-30)
[2021-03-08] MEDS: ENOXAPARIN 40MG/0.4ML SYRINGE (J1650 PER 10MG) SC SCH (09:00)
[2021-03-08 09:05] LABS: MAGNESIUM LEVEL 2.2 MG/DL (1.8-2.4); POTASSIUM SERUM 3.5 MEQ/L (3.5-5.1)
[2021-03-08] MEDS: PIPERACILLIN/TAZOBACTAM SOD 4.5 GM in D5W MINI-BAG PLUS 50 ML IV SCH ×3 (09:53→20:18)
[2021-03-08] MEDS ORDERED: VANCOMYCIN HCL 1,000 MG, VIAL MATE ADAPTER 1 EACH in NS 250 ML IV ONE ×2 (10:00→11:00)
[2021-03-08] MEDS: NOREPINEPHRINE BITARTRATE 8 MG in D5W 492 ML IV SCH (13:00)
[2021-03-08] MEDS: HYDROCORTISONE 100 MG/2 ML VIAL (J1720 PER 1) IV SCH ×2 (14:28→20:18)
[2021-03-08] MEDS ORDERED: VANCOMYCIN HCL 750 MG, VIAL MATE ADAPTER 1 EACH in NS 250 ML IV SCH (22:00)
[2021-03-08] MEDS ORDERED: VANCOMYCIN HCL 500 MG in D5W MINI-BAG PLUS 100 ML IV SCH (23:00)
[2021-03-09 00:39] VITALS: BP 101/56
[2021-03-09] MEDS: NOREPINEPHRINE BITARTRATE 8 MG in D5W 492 ML IV SCH (02:20)
[2021-03-09] MEDS: HYDROCORTISONE 100 MG/2 ML VIAL (J1720 PER 1) IV SCH ×4 (02:58→21:46)
[2021-03-09] MEDS: PIPERACILLIN/TAZOBACTAM SOD 4.5 GM in D5W MINI-BAG PLUS 50 ML IV SCH ×2 (02:59→08:16)
[2021-03-09 04:22] VITALS: BP 104/66
[2021-03-09] MEDS: KCL 20MEQ in NS 1000ML 1,000 ML IV SCH (06:16)
[2021-03-09 06:27] LABS: HEMATOCRIT 24.6 % (36.0-47.0); HEMOGLOBIN 8.1 g/dl (12.0-15.5); MEAN CORPUSCULAR HEMOGLOBIN 34.5 pg (27.0-33.0); MEAN CORPUSCULAR HGB CONC 32.9 g/dl (32.0-36.5); MEAN CORPUSCULAR VOLUME 104.7 fl (80.0-96.0); RED BLOOD COUNT 2.35 10^6/uL (4.00-5.40); WHITE BLOOD COUNT 3.3 10^3/uL (4.0-10.0)
[2021-03-09 06:49] LABS: BLOOD UREA NITROGEN 18 MG/DL (7-18); CALCIUM LEVEL 7.9 MG/DL (8.8-10.2); CARBON DIOXIDE LEVEL 22 MEQ/L (21-32); CHLORIDE LEVEL 112 MEQ/L (98-107); CREATININE FOR GFR 0.65 MG/DL (0.55-1.30); GLOMERULAR FILTRATION RATE > 60.0 (>45); GLUCOSE, FASTING 134 MG/DL (70-100); POTASSIUM SERUM 3.1 MEQ/L (3.5-5.1); SODIUM LEVEL 143 MEQ/L (136-145)
[2021-03-09 07:03] LABS: PLATELET COUNT, AUTOMATED 88 10^3/uL (150-450)
[2021-03-09 07:08] LABS: ANISOCYTOSIS 1+; ATYPICAL LYMPH 1 % (0-5); LYMPHOCYTES 12 % (16-44); NEUTROPHILS 87 % (28-66); PLATELET ESTIMATE DECREASED (NORMAL)
[2021-03-09 07:10] LABS: OVALOCYTES 1+
[2021-03-09 07:36] VITALS: BP 108/58
[2021-03-09] MEDS: MIDODRINE 5 MG TAB PO SCH ×3 (07:43→16:30)
[2021-03-09] MEDS: POTASSIUM CHLORIDE 10MEQ SR TABLET PO SCH ×2 (08:15→21:46)
[2021-03-09] MEDS ORDERED: VANCOMYCIN HCL 1,000 MG, VIAL MATE ADAPTER 1 EACH in NS 250 ML IV SCH (11:00)
[2021-03-09 13:38] VITALS: BP 139/80
[2021-03-09 14:30] VITALS: BP 129/68
[2021-03-09] MEDS: ESCITALOPRAM OXALATE 10 MG TAB (LEXAPRO) PO SCH (21:46)
[2021-03-09] MEDS: MELOXICAM (MOBIC) 7.5 MG TAB PO SCH (21:46)
[2021-03-09 22:00] VITALS: BP 119/70
[2021-03-10] MEDS: HYDROCORTISONE 100 MG/2 ML VIAL (J1720 PER 1) IV SCH (03:26)
[2021-03-10 06:00] VITALS: BP 117/64
[2021-03-10 06:22] LABS: BASO % 0.3 % (0.0-1.0); HEMATOCRIT 25.4 % (36.0-47.0); HEMOGLOBIN 8.3 g/dl (12.0-15.5); LYMPH # 0.7 10^3/uL (1.5-5.0); LYMPH % 19.4 % (24.0-44.0); MEAN CORPUSCULAR HEMOGLOBIN 34.3 pg (27.0-33.0); MEAN CORPUSCULAR HGB CONC 32.7 g/dl (32.0-36.5); MONO # 0.1 10^3/uL (0.0-0.8); MONO % 1.8 % (2.0-8.0); NEUTROPHILS # 2.6 10^3/uL (1.5-8.5); NEUTROPHILS % 77.9 % (36.0-66.0); RED BLOOD COUNT 2.42 10^6/uL (4.00-5.40); WHITE BLOOD COUNT 3.4 10^3/uL (4.0-10.0)
[2021-03-10 06:25] LABS: PLATELET COUNT, AUTOMATED 96 10^3/uL (150-450)
[2021-03-10 06:43] LABS: BLOOD UREA NITROGEN 19 MG/DL (7-18); CALCIUM LEVEL 8.6 MG/DL (8.8-10.2); CARBON DIOXIDE LEVEL 24 MEQ/L (21-32); CHLORIDE LEVEL 111 MEQ/L (98-107); CREATININE FOR GFR 0.56 MG/DL (0.55-1.30); GLOMERULAR FILTRATION RATE > 60.0 (>45); GLUCOSE, FASTING 107 MG/DL (70-100); POTASSIUM SERUM 3.8 MEQ/L (3.5-5.1); SODIUM LEVEL 142 MEQ/L (136-145)
[2021-03-10] MEDS: POTASSIUM CHLORIDE 10MEQ SR TABLET PO SCH ×2 (08:33→20:51)
[2021-03-10 14:00] VITALS: BP 122/65
[2021-03-10] MEDS: MELOXICAM (MOBIC) 7.5 MG TAB PO SCH (20:51)
[2021-03-10] MEDS: FAMOTIDINE 40MG/5ML ORAL SUSPENSON 50ML BOTTLE PO SCH (20:51)
[2021-03-10] MEDS: ESCITALOPRAM OXALATE 10 MG TAB (LEXAPRO) PO SCH (20:52)
[2021-03-10 22:00] VITALS: BP 124/68
[2021-03-11 06:00] VITALS: BP 124/69
[2021-03-11 06:32] LABS: BASO % 0.5 % (0.0-1.0); EOS % 0.5 % (0.0-3.0); HEMATOCRIT 26.5 % (36.0-47.0); HEMOGLOBIN 8.6 g/dl (12.0-15.5); LYMPH % 46.2 % (24.0-44.0); MEAN CORPUSCULAR HEMOGLOBIN 34.5 pg (27.0-33.0); MEAN CORPUSCULAR HGB CONC 32.5 g/dl (32.0-36.5); MEAN CORPUSCULAR VOLUME 106.4 fl (80.0-96.0); MONO # 0.1 10^3/uL (0.0-0.8); MONO % 4.3 % (2.0-8.0); RED BLOOD COUNT 2.49 10^6/uL (4.00-5.40); WHITE BLOOD COUNT 2.1 10^3/uL (4.0-10.0)
[2021-03-11 06:35] LABS: PLATELET COUNT, AUTOMATED 99 10^3/uL (150-450)
[2021-03-11 07:00] LABS: BLOOD UREA NITROGEN 16 MG/DL (7-18); CALCIUM LEVEL 8.4 MG/DL (8.8-10.2); CARBON DIOXIDE LEVEL 23 MEQ/L (21-32); CHLORIDE LEVEL 112 MEQ/L (98-107); CREATININE FOR GFR 0.46 MG/DL (0.55-1.30); GLOMERULAR FILTRATION RATE > 60.0 (>45); GLUCOSE, FASTING 74 MG/DL (70-100); SODIUM LEVEL 140 MEQ/L (136-145)
[2021-03-11] MEDS ORDERED: BACITAB PO (08:06)
[2021-03-11] MEDS: POTASSIUM CHLORIDE 10MEQ SR TABLET PO SCH (09:11)
[2021-03-11 10:21] LABS: C REACTIVE PROTEIN QUANTITATIV 3.11 MG/DL (0.00-0.30)
[2021-03-11 11:00] LABS: ERYTHROCYTE SEDIMENTATION RATE 73 mm/hr (0-30)
[2021-03-11] MEDS: FAMOTIDINE 40MG/5ML ORAL SUSPENSON 50ML BOTTLE PO SCH (11:16)
== END 2021-03-11 13:09 | disposition home or self-care (01) | DRG 871 ==
LOC: M ED 02:18 → M ED INP 09:47 → M PCU 21:03 → M MSPAV 03-09 14:21
PROVIDERS: ADMIT General Practice; ATTEND General Practice
DX: A41.9 Sepsis, unspecified organism (principal); R57.1 Hypovolemic shock; D61.810 Antineoplastic chemotherapy induced pancytopenia; C78.00 Secondary malignant neoplasm of unspecified lung; C56.9 Malignant neoplasm of unspecified ovary; C78.7 Secondary malignant neoplasm of liver and intrahepatic bile duct; A08.39 Other viral enteritis; E87.2 Acidosis; J98.11 Atelectasis; B37.2 Candidiasis of skin and nail; C50.919 Malignant neoplasm of unspecified site of unspecified female breast; Z97.8 Presence of other specified devices; M19.90 Unspecified osteoarthritis, unspecified site; F32.A Depression, unspecified; E66.9 Obesity, unspecified; Z88.8 Allergy status to other drugs, medicaments and biological substances; E83.51 Hypocalcemia; K21.9 Gastro-esophageal reflux disease without esophagitis; Z20.822 Contact with and (suspected) exposure to COVID-19; Z79.899 Other long term (current) drug therapy; R65.20 Severe sepsis without septic shock; I95.9 Hypotension, unspecified; Z90.79 Acquired absence of other genital organ(s); E83.42 Hypomagnesemia; E87.6 Hypokalemia

== ENCOUNTER → 2021-04-27 | Outpatient (REF) | payer MEDICARE, BC ==
[~2021-04-27] MED LIST changes: +ATIV1TAB10 PO; +BACITAB PO; +CALC1TAB63 PO; +ONDA-84 PO; +PROC10TA5 PO; +RA B1TAB7 PO
== END ==
LOC: M LABDRWAD 12:25
PROVIDERS: ATTEND Physician Assistant Medical
DX: D3A.8 Other benign neuroendocrine tumors (principal)